=== PATIENT | male | born 1975 | race Caucasian/White ===

== ENCOUNTER → 2017-02-06 | Outpatient (CLI) | payer OTHER ==
[~2017-02-06] MED LIST: AMOXICILLIN500 MG PO; B121000 MCG/1; BACTRIM DS 8001 TA1 PO; CLEOCIN150 MG PO; EPI EZ PEN1 MG/ML IM; LEVOFLOXACIN500 MG PO; NORCO 325 MG-101 TAB PO
[2017-02-06 10:50] LABS: HEMATOCRIT 27.2 % (42.0-52.0); HEMOGLOBIN 8.7 g/dl (14.0-18.0); MEAN CELL VOLUME 94.4 fl (80.0-94.0); MEAN CORPUSCULAR HGB 30.2 pg (27.0-31.0); MEAN PLATELET VOLUME 11.1 fl (9.6-12.3); RED BLOOD COUNT 2.88 10*6/uL (4.50-5.90); RED CELL DISTRI WIDTH 14.2 % (0-14.5)
[2017-02-06 11:20] LABS: ALBUMIN 2.1 gm/dl (3.1-4.5); ALKALINE PHOSPHATASE 224 U/L (45-117); BILIRUBIN, TOTAL 0.5 mg/dl (0.2-1.0); BUN 6 mg/dl (7-24); CARBON DIOXIDE 36 mmol/L (21-32); CHLORIDE 89 mmol/L (98-107); CHOLESTEROL 148 mg/dL (<200); EST GLOM FILT AFRICAN AMERICAN > 60 ml/min; GLUCOSE 104 mg/dL (65-99); HDL CHOLESTEROL 22 mg/dl (40-60); LDL CHOLESTEROL 105 mg/dL (9-159); SGOT/AST 43 IU/L (3-35); SGPT/ALT 68 U/L (12-78); SODIUM 132 mmol/L (136-145); TOTAL PROTEIN 7.4 gm/dL (6.4-8.2); TRIGLYCERIDES 105 mg/dl (<150); VLDL CHOLESTEROL 21 mg/dL (6-40)
[2017-02-06 11:24] LABS: POTASSIUM 2.4 mmol/L (3.5-5.1)
== END | disposition home or self-care (01) ==
LOC: LAB 10:19
PROVIDERS: Family Medicine
DX: Z13.820 Encounter for screening for osteoporosis (principal); E55.9 Vitamin D deficiency, unspecified; R50.9 Fever, unspecified; R05 Cough; R61 Generalized hyperhidrosis; R09.89 Other specified symptoms and signs involving the circulatory and respiratory systems; R51 Headache; R91.8 Other nonspecific abnormal finding of lung field

== ENCOUNTER 2017-02-08 10:36 | Inpatient (IN) | payer OTHER ==
[~2017-02-08] VITALS: Ht 185.4 cm; Wt 76.2 kg
[~2017-02-08 10:36] MED LIST changes: -LEVOFLOXACIN500 MG PO
[2017-02-08 10:49] VITALS: BP 124/81
[2017-02-08] MEDS ORDERED: LEVOFLOXACIN500 MG PO (10:53)
[2017-02-08 11:38] LABS: BASO % 0.3 % (0.0-1.0); HEMATOCRIT 27.5 % (42.0-52.0); HEMOGLOBIN 8.7 g/dl (14.0-18.0); IG # 0.1 10*3/uL (0.0-0.1); LYMPH # 0.6 10*3/uL (1.3-4.4); LYMPH % 8.9 % (27.0-41.0); MEAN CELL VOLUME 94.2 fl (80.0-94.0); MEAN CORPUSCULAR HGB 29.8 pg (27.0-31.0); MEAN CORPUSCULAR HGB CONC 31.6 g/dl (33.0-37.0); MEAN PLATELET VOLUME 10.8 fl (9.6-12.3); MONO % 0.3 % (3.0-9.0); NEUT # 6.2 10*3/uL (2.3-7.9); NEUT % 89.1 % (47.0-73.0); PLATELET COUNT AUTOMATED 407 10*3/uL (130-400); RED BLOOD COUNT 2.92 10*6/uL (4.50-5.90); RED CELL DISTRI WIDTH 14.4 % (0-14.5)
[2017-02-08 11:49] VITALS: BP 136/84
[2017-02-08 11:55] LABS: ALKALINE PHOSPHATASE 201 U/L (45-117); BILIRUBIN, TOTAL 0.4 mg/dl (0.2-1.0); BUN 7 mg/dl (7-24); CARBON DIOXIDE 30 mmol/L (21-32); CHLORIDE 97 mmol/L (98-107); EST GLOM FILT AFRICAN AMERICAN > 60 ml/min; GLUCOSE 102 mg/dL (65-99); POTASSIUM 3.1 mmol/L (3.5-5.1); SGOT/AST 48 IU/L (3-35); SGPT/ALT 82 U/L (12-78); SODIUM 138 mmol/L (136-145); TOTAL PROTEIN 7.3 gm/dL (6.4-8.2)
[2017-02-08 11:57] LABS: TROPONIN I < 0.015 ng/ml (<0.045)
[2017-02-08 14:05] VITALS: BP 127/71
[2017-02-08 16:00] VITALS: BP 125/66
[2017-02-08 20:00] VITALS: BP 122/55
[2017-02-09] VITALS: BP 109/53
[2017-02-09 06:43] LABS: BUN 8 mg/dl (7-24); CARBON DIOXIDE 30 mmol/L (21-32); CHLORIDE 101 mmol/L (98-107); EST GLOM FILT AFRICAN AMERICAN > 60 ml/min; GLUCOSE 85 mg/dL (65-99); POTASSIUM 3.6 mmol/L (3.5-5.1); SODIUM 139 mmol/L (136-145)
[2017-02-09 08:00] VITALS: BP 141/70
[2017-02-09 09:57] LABS: RETICULOCYTE % 0.96 % (0.50-2.50)
[2017-02-09 09:58] LABS: IRF 15.7 % (2.4-13.3); RET-He 27.3 pg (32.1-37.9)
[2017-02-09 10:11] LABS: FREE T4 1.17 ng/dl (0.76-1.46)
[2017-02-09 10:16] LABS: THYROID STIM HORMONE (HS) 0.876 uIU/ml (0.358-4.75)
[2017-02-09 10:50] LABS: FOLIC ACID 9.56 ng/mL (>5.38)
[2017-02-09 12:00] VITALS: BP 120/57
[2017-02-09 16:00] VITALS: BP 116/64
[2017-02-09 20:00] VITALS: BP 129/72
[2017-02-10] VITALS: BP 120/74
[2017-02-10 08:00] VITALS: BP 135/67
[2017-02-10 08:07] LABS: HEPATITIS C VIRUS ANTIBODY <0.1 s/co (0.0-0.9)
[2017-02-10] MEDS ORDERED: K-TAB10 MEQ PO (08:11)
[2017-02-10] MEDS ORDERED: CIPRO500 MG PO (08:11)
[2017-02-10] MEDS ORDERED: FERROUS SULFAT324 M2 PO (08:11)
[2017-02-10 12:00] VITALS: BP 143/69
[2017-02-10 12:37] LABS: BILIRUBIN NEGATIVE (NEGATIVE); BLOOD TRACE-INTACT (NEGATIVE); CLARITY CLEAR (CLEAR); COLOR YELLOW (YELLOW); GLUCOSE NEGATIVE (NEGATIVE); KETONE NEGATIVE (NEGATIVE); LEUKO ESTERASE NEGATIVE (NEGATIVE); NITRITE NEGATIVE (NEGATIVE); PROTEIN NEGATIVE (NEGATIVE); UROBILINOGEN 0.2 E.U./dl (0.2-1.0)
[2017-02-10 12:47] LABS: BACTERIA 1+; EPITHELIAL CELLS 0-2; MUCOUS 1+; URINE REFLEX COMMENT NO (NO)
[2017-02-10 16:00] VITALS: BP 104/49; BP 123/59
[2017-02-10 20:00] VITALS: BP 119/61
[2017-02-11] VITALS: BP 128/66
[2017-02-11 08:00] VITALS: BP 160/71
[2017-02-12 10:02] LABS: LEAD BLOOD 3 ug/dL (0-19)
[2017-02-13 00:02] LABS: ARSENIC BLOOD 7 ug/L (2-23)
== END 2017-02-11 10:00 | disposition home or self-care (01) | DRG 193 ==
LOC: ED 10:36 → 5E 13:09 → EDHOLD 13:09 → 5E 13:22
PROVIDERS: Emergency Medicine; Internal Medicine
DX: J18.9 Pneumonia, unspecified organism (principal); J96.00 Acute respiratory failure, unspecified whether with hypoxia or hypercapnia; E87.6 Hypokalemia; R00.0 Tachycardia, unspecified; D53.9 Nutritional anemia, unspecified; R74.0 Nonspecific elevation of levels of transaminase and lactic acid dehydrogenase [LDH]; D51.0 Vitamin B12 deficiency anemia due to intrinsic factor deficiency; D47.3 Essential (hemorrhagic) thrombocythemia; Z88.8 Allergy status to other drugs, medicaments and biological substances

== ENCOUNTER → 2017-02-14 | Outpatient (CLI) | payer OTHER ==
[~2017-02-14] MED LIST changes: +CIPRO500 MG PO; +FERROUS SULFAT324 M2 PO; +K-TAB10 MEQ PO; +LEVOFLOXACIN500 MG PO
[2017-02-14 11:45] LABS: HEMATOCRIT 34.3 % (42.0-52.0); HEMOGLOBIN 10.6 g/dl (14.0-18.0); MEAN CORPUSCULAR HGB 30.3 pg (27.0-31.0); MEAN CORPUSCULAR HGB CONC 30.9 g/dl (33.0-37.0); MEAN PLATELET VOLUME 10.8 fl (9.6-12.3); RED BLOOD COUNT 3.5 10*6/uL (4.50-5.90); RED CELL DISTRI WIDTH 17.1 % (0-14.5); WHITE BLOOD COUNT 5.8 10*3/uL (4.8-10.8)
[2017-02-14 11:49] LABS: ALBUMIN 2.8 gm/dl (3.1-4.5); ALKALINE PHOSPHATASE 133 U/L (45-117); BILIRUBIN, TOTAL 0.3 mg/dl (0.2-1.0); BUN 12 mg/dl (7-24); CARBON DIOXIDE 28 mmol/L (21-32); CHLORIDE 103 mmol/L (98-107); EST GLOM FILT AFRICAN AMERICAN > 60 ml/min; GLUCOSE 88 mg/dL (65-99); POTASSIUM 4.4 mmol/L (3.5-5.1); SGOT/AST 28 IU/L (3-35); SGPT/ALT 164 U/L (12-78); SODIUM 139 mmol/L (136-145); TOTAL PROTEIN 7.7 gm/dL (6.4-8.2)
== END | disposition home or self-care (01) ==
LOC: LAB 10:48
PROVIDERS: Family Medicine
DX: D64.9 Anemia, unspecified (principal); J18.1 Lobar pneumonia, unspecified organism; E87.6 Hypokalemia; R53.83 Other fatigue

== ENCOUNTER → 2017-02-21 | Outpatient (CLI) | payer OTHER ==
[2017-02-21 11:38] LABS: HEMATOCRIT 32.6 % (42.0-52.0); HEMOGLOBIN 10.3 g/dl (14.0-18.0); MEAN CELL VOLUME 95.9 fl (80.0-94.0); MEAN CORPUSCULAR HGB 30.3 pg (27.0-31.0); MEAN CORPUSCULAR HGB CONC 31.6 g/dl (33.0-37.0); MEAN PLATELET VOLUME 11.6 fl (9.6-12.3); RED BLOOD COUNT 3.4 10*6/uL (4.50-5.90); RED CELL DISTRI WIDTH 17.3 % (0-14.5); WHITE BLOOD COUNT 3.9 10*3/uL (4.8-10.8)
[2017-02-21 12:10] LABS: ALBUMIN 3.2 gm/dl (3.1-4.5); ALKALINE PHOSPHATASE 98 U/L (45-117); BILIRUBIN, TOTAL 0.6 mg/dl (0.2-1.0); BUN 11 mg/dl (7-24); CARBON DIOXIDE 25 mmol/L (21-32); CHLORIDE 104 mmol/L (98-107); EST GLOM FILT AFRICAN AMERICAN > 60 ml/min; GLUCOSE 108 mg/dL (65-99); POTASSIUM 3.7 mmol/L (3.5-5.1); SGOT/AST 12 IU/L (3-35); SGPT/ALT 35 U/L (12-78); SODIUM 140 mmol/L (136-145); TOTAL PROTEIN 7.3 gm/dL (6.4-8.2)
[2017-02-22 08:12] LABS: HEPATITIS C VIRUS ANTIBODY <0.1 s/co (0.0-0.9)
== END | disposition home or self-care (01) ==
LOC: LAB 11:13
PROVIDERS: Family Medicine
DX: J18.9 Pneumonia, unspecified organism (principal); D64.9 Anemia, unspecified; R79.89 Other specified abnormal findings of blood chemistry

== ENCOUNTER → 2017-03-22 | Outpatient (CLI) | payer OTHER ==
[2017-03-22 16:16] LABS: HEMATOCRIT 32.2 % (42.0-52.0); HEMOGLOBIN 9.9 g/dl (14.0-18.0); MEAN CELL VOLUME 101.6 fl (80.0-94.0); MEAN CORPUSCULAR HGB 31.2 pg (27.0-31.0); MEAN CORPUSCULAR HGB CONC 30.7 g/dl (33.0-37.0); RED BLOOD COUNT 3.17 10*6/uL (4.50-5.90); RED CELL DISTRI WIDTH 17.5 % (0-14.5); WHITE BLOOD COUNT 4.7 10*3/uL (4.8-10.8)
[2017-03-22 16:46] LABS: ALBUMIN 3.4 gm/dl (3.1-4.5); ALKALINE PHOSPHATASE 90 U/L (45-117); BILIRUBIN, TOTAL 0.6 mg/dl (0.2-1.0); BUN 11 mg/dl (7-24); CARBON DIOXIDE 25 mmol/L (21-32); CHLORIDE 105 mmol/L (98-107); EST GLOM FILT AFRICAN AMERICAN > 60 ml/min; GLUCOSE 93 mg/dL (65-99); SGOT/AST 12 IU/L (3-35); SGPT/ALT 17 U/L (12-78); SODIUM 139 mmol/L (136-145); TOTAL PROTEIN 7.2 gm/dL (6.4-8.2)
== END | disposition home or self-care (01) ==
LOC: LAB 15:54
PROVIDERS: Family Medicine
DX: D72.819 Decreased white blood cell count, unspecified (principal); J18.9 Pneumonia, unspecified organism; D64.9 Anemia, unspecified

== ENCOUNTER 2017-06-17 11:50 | Emergency (ER) | payer BC ==
[~2017-06-17] VITALS: Ht 182.8 cm; Wt 86.2 kg
--- NOTE | ~2017-06-17 | EKG ---
[place] ELECTROCARDIOGRAM REPORT NAME: DONNY HAND UNIT #: [id number] ROOM: DOCTOR: BETY RAYA MD,MOI BIRTHDATE: [birth year] DOS: 06/17/2017 Sinus tachycardia noted with heart rate 140 beats per minute. Left atrial enlargement appeared to be likely. Left axis deviation was noted with a wedge of mild prolongation of the QTC interval. MOI ALBERT MD CM:EKGRPT:ELECTROCARDIOGRAM REPORT [id number] MOI RAYA MD
[2017-06-17 12:09] LABS: HEMATOCRIT 40.5 % (42.0-52.0); HEMOGLOBIN 12.7 g/dl (14.0-18.0); MEAN CORPUSCULAR HGB 31.4 pg (27.0-31.0); MEAN CORPUSCULAR HGB CONC 31.4 g/dl (33.0-37.0); MEAN PLATELET VOLUME 11.8 fl (9.6-12.3); PLATELET COUNT AUTOMATED 190 10*3/uL (130-400); RED BLOOD COUNT 4.05 10*6/uL (4.50-5.90); RED CELL DISTRI WIDTH 16.4 % (0-14.5)
[2017-06-17 12:23] LABS: ALBUMIN 2.7 gm/dl (3.1-4.5); ALKALINE PHOSPHATASE 52 U/L (45-117); BUN 29 mg/dl (7-24); CHLORIDE 102 mmol/L (98-107); CREATININE 2.14 mg/dL (0.70-1.30); POTASSIUM 4.3 mmol/L (3.5-5.1); SGOT/AST 64 IU/L (3-35); SGPT/ALT 24 U/L (12-78); SODIUM 139 mmol/L (136-145)
[2017-06-17 12:30] LABS: ACT PARTIAL THROMBO TIME 32.4 SECONDS (20.8-31.5); INTERNATIONAL NORM RATIO 1.5 (2.0-3.5)
[2017-06-17 12:31] LABS: WHITE BLOOD COUNT 0.8 10*3/uL (4.8-10.8)
[2017-06-17 12:32] LABS: TROPONIN I < 0.015 ng/ml (<0.045)
[2017-06-17 13:00] VITALS: BP 175/83
[2017-06-17 13:21] LABS: TOTAL CELLS COUNTED 100 #CELLS
[2017-06-17 13:24] LABS: OVALOCYTES FEW; POLYCHROMASIA SLIGHT
[2017-06-17 13:25] LABS: ACANTHOCYTES MODERATE; PLATELET SUFFICIENCY NORMAL (NORMAL)
[2017-06-17 13:52] LABS: BILIRUBIN 1+ (NEGATIVE); BLOOD 1+ (NEGATIVE); CLARITY CLEAR (CLEAR); COLOR BROWN (YELLOW); GLUCOSE NEGATIVE (NEGATIVE); KETONE TRACE (NEGATIVE); LEUKO ESTERASE NEGATIVE (NEGATIVE); NITRITE POSITIVE (NEGATIVE); SPECIFIC GRAVITY >= 1.030 (1.005-1.030)
[2017-06-17 14:12] LABS: BACTERIA 1+
[2017-06-17 14:13] LABS: WBC 0-2 wbc/hpf (0-5)
[2017-06-18 09:41] LABS: ATYPICAL LYMPHS 0 % (0-0)
== END 2017-06-17 14:56 | disposition short-term general hospital (02) ==
LOC: ED 11:50
PROVIDERS: Emergency Medicine
DX: A41.9 Sepsis, unspecified organism (principal); R65.20 Severe sepsis without septic shock; J18.9 Pneumonia, unspecified organism; J96.90 Respiratory failure, unspecified, unspecified whether with hypoxia or hypercapnia; E87.6 Hypokalemia; Z79.899 Other long term (current) drug therapy